=== PATIENT | male | born 1950 | race Caucasian/White ===

== ENCOUNTER → 2020-09-07 | Outpatient (CLI) | payer MEDICARE, OTHER ==
--- NOTE | 2020-09-07 14:55 | KCIC ---
MRI of the lumbar spine without contrast 09/07/2020 CLINICAL HISTORY: Chronic low back pain. TECHNIQUE: Unenhanced T1-weighted and T2-weighted sagittal and axial and inversion recovery sagittal images of the lumbar spine were obtained. FINDINGS: Comparison is made to a CT scan of the lumbar spine dated 07/08/2020. Very mild S-shaped curvature of the thoracolumbar spine is seen. Degenerative signal changes are seen involving all of the disks of the lumbar spine. Degenerative signal changes are seen within the dinh ow surrounding these discs. Loss of height of the L3-4, L4-5 and L5-S1 discs is noted. The conus medu llaris is normal morphology, position, and signal characteristics. Multiple rounded high signal inten sity lesions are seen scattered throughout both kidneys and the T2-weighted images. These measure 5 m m to 4.5 cm in size. They likely represent cysts. No further imaging evaluation is recommended. At the L1-2 disc space there is a minimal generalized disc bulge. Degenerative changes are seen invol ving the facet joints bilaterally. These findings do not result in significant central spinal canal o r neural foraminal stenosis. At the L2-3 disc space there is a mild to moderate generalized disc bulge. This is eccentric to the l eft. Degenerative changes are seen involving the facet joints bilaterally. There is moderate ligament um flavum hypertrophy bilaterally. These findings when combined result in mild central spinal canal s tenosis. Mild to moderate left neural foraminal stenosis is seen. The right neural foramen is patent. At the L3-4 disc space there is a mild to moderate generalized disc bulge. This is eccentric to the r ight. Superimposed on this disc bulge is a right paracentral focal disc protrusion. This measures 5 m m in AP diameter. Degenerative changes are seen involving the facet joints bilaterally. There is mode rate ligamentum flavum hypertrophy bilaterally. There is prominence of posterior epidural fat. These findings when combined result in moderate to severe right greater than left central spinal canal sten osis. Mild to moderate bilateral neural foraminal stenosis is seen. At the L4-5 disc space there is a moderate generalized disc bulge. Superimposed on this disc bulge is a focal central disc protrusion. This measures 3 mm in AP diameter. Degenerative changes are seen in volving the facet joints bilaterally. There is moderate ligamentum flavum hypertrophy bilaterally. Th dexter findings when combined result in mild central spinal canal stenosis. Mild to moderate right great er than left neural foraminal stenosis is seen. At the L5-S1 disc space there is a moderate generalized disc bulge. Degenerative changes are seen inv olving the facet joints bilaterally. There is mild ligamentum flavum hypertrophy bilaterally. These f indings when combined result in moderate left greater than right neural foraminal stenosis. No signif icant central spinal canal stenosis is seen. IMPRESSION: The changes of degenerative disc disease are seen throughout the lumbar spine. These find ings result in mild central spinal canal stenosis at L2-3 and L4-5 and moderate to severe right great er than left central spinal canal stenosis at L3-4. Mild to moderate left neural foraminal stenosis i s seen at L2-3. Mild to moderate bilateral neural foraminal stenosis is seen at L3-4. Mild to moderat e right greater than left neural foraminal stenosis is seen at L4-5. Moderate left greater than right neural foraminal stenosis is seen L5-S1. Electronically signed by: Kelton Quiñones MD (09/07/2020 2:52 PM) [id number]
== END ==
LOC: KCIC MRI 12:22
PROVIDERS: ATTEND Physician Assistant Medical
DX: M51.36 Other intervertebral disc degeneration, lumbar region (principal); M48.061 Spinal stenosis, lumbar region without neurogenic claudication
CPT/HCPCS: 72148